=== PATIENT | female | born 1990 | race Caucasian/White ===

== ENCOUNTER 2021-01-25 19:38 | Emergency (ER) | payer MEDICAID, SELFPAY ==
--- NOTE | ~2021-01-25 | US_ITS ---
EXAMINATION: US ABDOMEN LIMITED CLINICAL INFORMATION: Mid abdominal pain for 6 days. Epigastric pain, worse after food intact. Nausea. Patient states nothing by mouth for 8 hours prior to this exam. COMPARISON: None TECHNIQUE: Real-time imaging of the right upper quadrant abdominal viscera. Color Doppler exam used. FINDINGS: PANCREAS: The head and body of the pancreas is normal. The tail is obscured by bowel gas. LIVER: Normal. The liver is normal in size. The liver contour is normal. Parenchymal echogenicity is normal. No focal hepatic lesion. There is no intrahepatic biliary duct dilatation seen. GALLBLADDER: Normal. The gallbladder is physiologically distended without evidence of stones, sludge, polyps, wall thickening or pericholecystic fluid. COMMON BILE DUCT: Normal in caliber measuring 0.3 cm in diameter. RIGHT KIDNEY: Normal. No hydronephrosis. No renal calculi or focal parenchymal lesions. The kidney measures 10.5 cm in maximum dimension. FREE FLUID: None. US/US abdomen limited IMPRESSION: Normal ultrasound right upper quadrant of abdomen.
[2021-01-25 20:13] VITALS: BP 123/61; PULSE 78; RESP 16; TEMP 37.1; O2SAT 100; BMI 21.9
[2021-01-25 20:55] LABS: MANUAL DIFF FLAG NO
[2021-01-25 20:58] LABS: Appearance Urine CLEAR; Color Urine YELLOW; Glucose Urine UA NEG (NEG); Leukocyte Esterase Urine 1+ (NEG); Nitrite Urine NEG (NEG); PH 5.5 (5.0-8.0); UACC Culture Trigger YES; Urine Blood 3+ (NEG); Urine Ketones NEG (NEG); Urine Protein NEG (NEG-TRACE)
[2021-01-25 20:58] LABS: Basophils Percent Auto 0.4 % (0-2); Eosinophils Absolute Auto 0.2 X10*3/uL (0.0-0.4); Eosinophils Percent Auto 2.6 % (0-4); Hematocrit 36.3 % (37-47); Hemoglobin 11.7 g/dl (12.0-16.0); Imm Gran Abs Auto 0.01 X10*3/uL (0.00-0.03); Imm Gran Pct Auto 0.1 % (0.0-0.4); Lymphocytes Absolute Auto 2.2 X10*3/uL (1.2-4.9); Mean Corpuscular HGB Conc 32.2 g/dl (31.0-35.0); Mean Corpuscular Hemoglobin 29.8 pg (27.0-33.0); Mean Corpuscular Volume 92.4 fL (80-98); Mean Platelet Volume 9.9 fL (9.4-12.3); Monocytes Absolute Auto 0.6 X10*3/uL (0.1-1.2); Monocytes Percent Auto 7.4 % (2-11); Neutrophils Absolute Auto 5.3 X10*3/uL (2.0-8.3); Neutrophils Percent Auto 63.5 % (45-73); Platelet Count 227 X10*3/uL (160-400); Red Blood Count 3.93 X10*6/uL (4.20-5.50); Red Cell Distribution Width 12.5 % (11.0-16.0); White Blood Count 8.4 X10*3/uL (4.8-10.8)
[2021-01-25 21:00] LABS: UPreg QC Valid YES; Urine Pregnancy NEGATIVE (NEGATIVE)
[2021-01-25 21:06] LABS: Bacteria Urine TRACE /LPF; UACC CULT YES
[2021-01-25 21:24] LABS: Alanine Aminotransferase 13 U/L (0-31); Albumin Level 4.2 g/dL (3.5-5.0); Alkaline Phosphatase 73 U/L (39-117); Anion Gap 11 (12-20); Aspartate Amino Transferase 16 U/L (5-31); Bilirubin Direct < 0.2 mg/dL (0.0-0.5); Bilirubin Total 0.4 mg/dL (0.0-1.0); Blood Urea Nitrogen 12 mg/dL (9-16); Calcium 8.6 mg/dL (8.4-10.2); Carbon Dioxide 28 mmol/L (22-29); Chloride 103 mmol/L (96-108); Creatinine Clr Calc Pharmacy 102.9; Estimated Glomerular Filt Rate > 60; Glucose Random 84 mg/dL (60-115); Lipase 57 U/L (8-78); Potassium 3.9 mmol/L (3.3-5.1); Sodium 138 mmol/L (135-145); Total Protein 7.4 g/dL (6.5-8.0)
[2021-01-25 22:19] VITALS: BP 102/58; PULSE 66; RESP 18; TEMP 36.7; O2SAT 99
--- NOTE | 2021-01-25 23:04 | ED.GENADULT ---
HPI - General Adult General Chief complaint: General Medical Stated complaint: reaction to vaccine Time Seen by Provider: 01/25/21 22:58 Source: patient Mode of arrival: ambulatory Limitations: no limitations History of Present Illness HPI narrative: Patient comes to emergency room complaining of not feeling well since she had her Lance and Lance COVID vaccine. For last 5 days, patient has been complaining of arm pain at the injection site, and complaining of epigastric pain since then. Patient states if she eats anything, it hurts worse. Related Data Previous Rx's Medication Instructions Recorded nitrofurantoin monohyd/m-cryst 100 mg PO BID #14 cap 01/26/21 [Macrobid] omeprazole 10 mg PO DAILY #7 cap 01/26/21 Allergies Allergy/AdvReac Type Severity Reaction Status Date / Time Penicillins [PENICILLINS] Allergy Mild RASH Unverified 06/29/20 17:16 azithromycin [AZITHROMYCIN] Allergy Unknown UNKNOWN Unverified 06/29/20 17:16 Review of Systems Review of Systems: Constitutional : No Weight loss, No Fever, No Chills, No Night Sweats, No Fatigue, No Malaise ENT/Mouth : No Hearing loss, No Ear Pain, No Nasal Congestion, No Sinus Pain, No Hoarseness, No sore throat, No Rhinorrhea, No Swallowing Difficulty Eyes: No Eye Pain, No Swelling, No Redness, No Foreign Body, No Discharge, No Vision Changes Cardiovascular : No Chest Pain, No SOB, No Dyspnea on Exertion, No Orthopnea, No Edema, No Palpitations Respiratory : No Cough, No Sputum, No Wheezing, No Smoke Exposure, No Dyspnea Gastrointestinal : Complaining of nausea, No Vomiting, No Diarrhea, No Constipation, complaining of epigastric abdominal Pain, No Hematochezia, No Melena Genitourinary : Today's the last day of her menstrual., No Dysuria, No Urinary Frequency, No Hematuria, No Urinary Incontinence, No Urgency, No Flank Pain, No Urinary Flow Changes, No Hesitancy Musculoskeletal : No joint pain, No Myalgias, No Joint Swelling Skin : No Skin Lesions, No rash Neuro : No Weakness, No Numbness, No Paresthesias, No Loss of Consciousness, No Dizziness, No Headache Psych : No Anxiety/Panic, No Depression, No SI/HI/AH/VH, No Social Issues, Heme/Lymph: No Bruising, No Bleeding,No Lymphadenopathy Endocrine : No Polyuria, No Polydipsia, No Temperature Intolerance [facility] Past Medical History Medical History Asthma Hypothyroid Social History Social History Advance Directives: No Advance Directives Information Provided: No Physical Exam Vital Signs: Vital Signs: Last Vital Signs Temp 98.1 F 01/25/21 22:19 Pulse 66 01/25/21 22:19 Resp 18 01/25/21 22:19 BP 102/58 L 01/25/21 22:19 Pulse Ox 99 01/25/21 22:19 Body Mass Index 21.9 Appearance: Alert. Oriented X3. No acute distress. Well-appearing Eyes: Pupils equal, round and reactive to light. ENT: Pharynx normal. Neck: Normal inspection. Neck supple. No lymph nodes noted. No crepitus CVS: Normal heart rate and rhythm. Pulses normal. Normal S1 and S2 Respiratory: No respiratory distress. Breath sounds normal. No Wheezing. No rales Abdomen: Soft and nontender to deep palpation in all quadrants including epigastric pain, negative Dc's sign, No rigidity. No distention. good BS x4 Skin: Skin warm and dry. Normal skin color. Normal skin turgor. Extremities: No lower extremity edema. No lower extremity edema. No Lacerations. No Rash Neuro: Oriented X 3. No motor deficit. No sensory deficit. Moving all extermities. No slurred speech. Course Course Course Narrative: Patient feeling better after GI cocktail, ultrasound discussed with the patient, no acute findings, patient likely has gastritis. Patient has a very mild UTI, given that she has abdominal pain, will go ahead and treat. Medical Decision Making Lab Data Result diagrams: 01/25/21 20:45 01/25/21 20:45 Labs: Lab Results 01/25/21 01/25/21 01/25/21 Range/Units 20:45 20:45 20:49 WBC 8.4 (4.8-10.8) X10*3/uL RBC 3.93 L (4.20-5.50) X10*6/uL Hgb 11.7 L (12.0-16.0) g/dl Hct 36.3 L (37-47) % MCV 92.4 (80-98) fL MCH 29.8 (27.0-33.0) pg MCHC 32.2 (31.0-35.0) g/dl RDW 12.5 (11.0-16.0) % Plt Count 227 (160-400) X10*3/uL MPV 9.9 (9.4-12.3) fL Immature Gran % (Auto) 0.1 (0.0-0.4) % Neut % (Auto) 63.5 (45-73) % Lymph % (Auto) 26.0 (20-40) % [place] % (Auto) 7.4 (2-11) % Eos % (Auto) 2.6 (0-4) % Baso % (Auto) 0.4 (0-2) % Lymph # (Auto) 2.2 (1.2-4.9) X10*3/uL [place] # (Auto) 0.6 (0.1-1.2) X10*3/uL Eos # (Auto) 0.2 (0.0-0.4) X10*3/uL Baso # (Auto) 0.0 (0.0-0.2) X10*3/uL Abs Immat Gran (auto) 0.01 (0.00-0.03) X10*3/uL Absolute Neuts (auto) 5.3 (2.0-8.3) X10*3/uL Absolute Nucleated RBC 0.000 (0.0-0.012) X10*3/uL Nucleated RBC % (auto) 0.0 (0.0-0.2) /100WBC Sodium 138 (135-145) mmol/L Potassium 3.9 (3.3-5.1) mmol/L Chloride 103 (96-108) mmol/L Carbon Dioxide 28 (22-29) mmol/L Anion Gap 11 L (12-20) BUN 12 (9-16) mg/dL Creatinine 0.77 (0.5-1.4) mg/dL Estim Creat Clear Calc 102.9 Estimated GFR > 60 Random Glucose 84 (60-115) mg/dL Calcium 8.6 (8.4-10.2) mg/dL Total Bilirubin 0.4 (0.0-1.0) mg/dL Direct Bilirubin < 0.2 (0.0-0.5) mg/dL AST 16 (5-31) U/L ALT 13 (0-31) U/L Alkaline Phosphatase 73 (39-117) U/L Total Protein 7.4 (6.5-8.0) g/dL Albumin 4.2 (3.5-5.0) g/dL Lipase 57 (8-78) U/L Urine Color YELLOW Urine Appearance CLEAR Urine pH 5.5 (5.0-8.0) Ur Specific [place] 1.020 (1.005-1.025) Urine Protein NEG (NEG-TRACE) MG/DL Urine Glucose (UA) NEG (NEG) MG/DL Urine Ketones NEG (NEG) MG/DL Urine Blood 3+ H (NEG) Urine Nitrite NEG (NEG) Ur Leukocyte Esterase 1+ H (NEG) Urine RBC 1-4 (0) /HPF Urine WBC 1-4 (0-4) /HPF Ur Squamous Epith Cells NONE /LPF Urine Bacteria TRACE /LPF Urine Test (NEGATIVE) 01/25/21 Range/Units 20:49 WBC (4.8-10.8) X10*3/uL RBC (4.20-5.50) X10*6/uL Hgb (12.0-16.0) g/dl Hct (37-47) % MCV (80-98) fL MCH (27.0-33.0) pg MCHC (31.0-35.0) g/dl RDW (11.0-16.0) % Plt Count (160-400) X10*3/uL MPV (9.4-12.3) fL Immature Gran % (Auto) (0.0-0.4) % Neut % (Auto) (45-73) % Lymph % (Auto) (20-40) % [place] % (Auto) (2-11) % Eos % (Auto) (0-4) % Baso % (Auto) (0-2) % Lymph # (Auto) (1.2-4.9) X10*3/uL [place] # (Auto) (0.1-1.2) X10*3/uL Eos # (Auto) (0.0-0.4) X10*3/uL Baso # (Auto) (0.0-0.2) X10*3/uL Abs Immat Gran (auto) (0.00-0.03) X10*3/uL Absolute Neuts (auto) (2.0-8.3) X10*3/uL Absolute Nucleated RBC (0.0-0.012) X10*3/uL Nucleated RBC % (auto) (0.0-0.2) /100WBC Sodium (135-145) mmol/L Potassium (3.3-5.1) mmol/L Chloride (96-108) mmol/L Carbon Dioxide (22-29) mmol/L Anion Gap (12-20) BUN (9-16) mg/dL Creatinine (0.5-1.4) mg/dL Estim Creat Clear Calc Estimated GFR Random Glucose (60-115) mg/dL Calcium (8.4-10.2) mg/dL Total Bilirubin (0.0-1.0) mg/dL Direct Bilirubin (0.0-0.5) mg/dL AST (5-31) U/L ALT (0-31) U/L Alkaline Phosphatase (39-117) U/L Total Protein (6.5-8.0) g/dL Albumin (3.5-5.0) g/dL Lipase (8-78) U/L Urine Color Urine Appearance Urine pH (5.0-8.0) Ur Specific [place] (1.005-1.025) Urine Protein (NEG-TRACE) MG/DL Urine Glucose (UA) (NEG) MG/DL Urine Ketones (NEG) MG/DL Urine Blood (NEG) Urine Nitrite (NEG) Ur Leukocyte Esterase (NEG) Urine RBC (0) /HPF Urine WBC (0-4) /HPF Ur Squamous Epith Cells /LPF Urine Bacteria /LPF Urine Test NEGATIVE (NEGATIVE) Imaging Data US - abdomen: Radiologist's impression: INDINGS: PANCREAS: The head and body of the pancreas is normal. The tail is obscured by bowel gas. LIVER: Normal. The liver is normal in size. The liver contour is normal. Parenchymal echogenicity is normal. No focal hepatic lesion. There is no intrahepatic biliary duct dilatation seen. GALLBLADDER: Normal. The gallbladder is physiologically distended without evidence of stones, sludge, polyps, wall thickening or pericholecystic fluid. COMMON BILE DUCT: Normal in caliber measuring 0.3 cm in diameter. RIGHT KIDNEY: Normal. No hydronephrosis. No renal calculi or focal parenchymal lesions. The kidney measures 10.5 cm in maximum dimension. FREE FLUID: None. US/US abdomen limited IMPRESSION: Normal ultrasound right upper quadrant of abdomen. Discharge Plan Discharge Clinical Impression: Gastritis Qualifiers: Gastritis type: unspecified gastritis Chronicity: unspecified Gastritis bleeding: without bleeding Qualified Code(s): K29.70 - Gastritis, unspecified, without bleeding UTI (urinary tract infection) Qualifiers: Urinary tract infection type: site unspecified Hematuria presence: without hematuria Qualified Code(s): N39.0 - Urinary tract infection, site not specified Patient Disposition: Home, Self-Care Instructions: Gastritis (ED) Additional Instructions: Please follow-up with your primary care physician tomorrow. If you have any worsening or new symptoms, please return to the emergency room or call 911 Prescriptions: New omeprazole 10 mg capsule,delayed release(DR/EC) 10 mg PO DAILY Qty: 7 RF: 0 nitrofurantoin monohyd/m-cryst [Macrobid] 100 mg capsule 100 mg PO BID Qty: 14 RF: 0
[2021-01-26] MEDS: Lidocaine HCl Viscous 2 % 15 ML SOLUTION MUCOUS MEM (00:25)
[2021-01-26] MEDS: Magnesium Hydrox/Alum Hydrox 30 ML ORAL.SUSP PO (00:25)
== END 2021-01-26 00:43 | disposition home or self-care (01) ==
PROVIDERS: Emergency Provider Emergency Medicine; PCP Nurse Practitioner Family
DX: N39.0 Urinary tract infection, site not specified (principal); K29.70 Gastritis, unspecified, without bleeding; R10.13 Epigastric pain
CPT/HCPCS: 36415; 76705; 80053; 80076; 81001; 81025; 82248; 83690; 85025; 87086; 99283; 99284

== ENCOUNTER 2022-01-21 15:06 | Emergency (ER) | payer MEDICAID, SELFPAY ==
--- NOTE | ~2022-01-21 | XR_ITS ---
EXAMINATION: LUMBAR SPINE. SACRUM AND COCCYX. CLINICAL INFORMATION: Fall. Pain. COMPARISON: None TECHNIQUE: Lumbar spine 3 views. Sacrum and coccyx 3 views. FINDINGS: Lumbar spine: There is normal lumbar lordosis. The vertebral heights, alignment and disc heights are normal. There is no visible acute fracture, dislocation or subluxation. No lytic process seen. The soft tissues are normal. Sacrum and coccyx: The SI joints are symmetrical and normal. There is acute kyphotic deformity involving the sacrococcygeal junction but no visible fracture or bony abnormality. Incidental finding of an IUD in the pelvis. XR/XR lumbar spine 2-3V IMPRESSION: Unremarkable lumbar spine exam. No visible fracture involving the lumbosacral spine. There is kyphotic deformity of sacrococcygeal junction likely old injury. No soft tissue swelling seen.
--- NOTE | ~2022-01-21 | XR_ITS ---
EXAMINATION: LUMBAR SPINE. SACRUM AND COCCYX. CLINICAL INFORMATION: Fall. Pain. COMPARISON: None TECHNIQUE: Lumbar spine 3 views. Sacrum and coccyx 3 views. FINDINGS: Lumbar spine: There is normal lumbar lordosis. The vertebral heights, alignment and disc heights are normal. There is no visible acute fracture, dislocation or subluxation. No lytic process seen. The soft tissues are normal. Sacrum and coccyx: The SI joints are symmetrical and normal. There is acute kyphotic deformity involving the sacrococcygeal junction but no visible fracture or bony abnormality. Incidental finding of an IUD in the pelvis. XR/XR sacrum coccyx min 2V IMPRESSION: Unremarkable lumbar spine exam. No visible fracture involving the lumbosacral spine. There is kyphotic deformity of sacrococcygeal junction likely old injury. No soft tissue swelling seen.
[2022-01-21 15:39] VITALS: BP 97/64; PULSE 110; RESP 18; TEMP 36.4; O2SAT 100; BMI 25.6
--- NOTE | 2022-01-21 16:36 | ED.GENADULT ---
HPI - General Adult General Chief complaint: Headache Stated complaint: back and neck pain Time Seen by Provider: 01/21/22 16:22 Source: patient Mode of arrival: ambulatory Limitations: no limitations History of Present Illness HPI narrative: Patient is a 31 year old female presenting to the emergency department today with low back pain. Patient states that she down a flight of stairs a few weeks ago and since then she has had low back pain that radiates up her spine. Patient denies hitting hit her head with the incident. Patient denies any loss of consciousness with the incident. Patient denies any dizziness, lightheadedness, abdominal pain, nausea, vomiting, fever, chills, blurry vision, double vision, loss of vision, chest pain, difficulty breathing, shortness of breath, night sweats, pain with urination, increased urinary frequency, increased urinary urgency, blood in her urine or stool, syncope or a near syncopal episode, bowel incontinence, bladder incontinence, bowel retention, bladder retention, or any other complaints at this time. Onset (ago): week(s) Location: back Severity: mild Severity scale (1-10): 3 Quality: dull Pain Consistency: intermittent Relieving factors: none Exacerbating factors: none Associated symptoms: denies other symptoms Treatments prior to arrival: none Related Data Previous Rx's Medication Instructions Recorded nitrofurantoin 100 mg PO BID #14 cap 01/26/21 monohydrate/macrocrystals 100 mg capsule (Macrobid) omeprazole 10 mg capsule,delayed 10 mg PO DAILY #7 cap 01/26/21 release cyclobenzaprine 10 mg tablet 10 mg PO TID PRN 7 Days #21 tab 01/21/22 Allergies Allergy/AdvReac Type Severity Reaction Status Date / Time Penicillins [PENICILLINS] Allergy Mild RASH Unverified 06/29/20 17:16 azithromycin [AZITHROMYCIN] Allergy Unknown UNKNOWN Unverified 06/29/20 17:16 Review of Systems Constitutional: Constitutional: Reports no additional constitutional complaints, Denies chills, Denies fever(s) and Denies night sweats Eyes: Eyes: Reports no additional eye complaints, Denies blurry vision, Denies change in vision, Denies diplopia, Denies eye discharge, Denies loss of vision and Denies eye pain ENT: Denies dizziness Cardiovascular: Cardiovascular: Reports no additional cardiovascular complaints, Denies chest pain, Denies lightheadedness, Denies Loss of Consciousness and Denies dyspnea Respiratory: Respiratory: Reports no additional respiratory complaints and Denies dyspnea Gastrointestinal: Gastrointestinal: Reports no additional gastrointestinal complaints, Denies abdominal pain, Denies melena, Denies hematochezia, Denies change in bowel habits and Denies change in stool character Genitourinary: Genitourinary: Denies hematuria, Denies urinary frequency, Denies dysuria, Denies urinary incontinence, Denies urinary hesitancy and Denies urinary urgency Musculoskeletal: Musculoskeletal: Reports no additional musculoskeletal complaints, Reports back pain, Denies numbness and Denies tingling Neurologic: Denies dizziness, Denies loss of vision, Denies numbness and Denies tingling Psychiatric: Psychiatric: Reports no additional psychiatric complaints Endocrine: Endocrine: Reports no additional endocrine complaints Hematologic/Lymphatic: Hematologic/Lymphatic: Reports no additional hematologic/lymphatic complaints Allergic/Immunologic: Allergic/Immunologic: Reports no additional allergic/immunologic complaints PMFSH Past Medical History Attestation statement: The following information was validated with the patient. Source: old records reviewed Medical History Asthma Hypothyroid Social History Social History Advance Directives: No Advance Directives Information Provided: No Patient : No Physical Exam ED Vital Signs: Vital Signs - 24 hr 01/21/22 15:39 Temperature 97.5 F Pulse Rate 110 H Respiratory Rate 18 Blood Pressure 97/64 Pulse Oximetry 100 BMI result Body Mass Index 25.6 Const General: cooperative, no acute distress, alert and awake Nutritional Appearance: well nourished Orientation/consciousness: patient oriented x3 Limitations: no limitations [facility] Head: Yes normal to inspection and Yes atraumatic Ears: hearing grossly normal bilaterally and external ears normal General nose exam: Normal external nose present, no nasal discharge noted and no epistaxis Face and sinus: Yes normal facial exam, No abrasion and No laceration Mouth: Normal oral and palatal mucosa present, no drooling and no muffled voice Eyes General: appearance normal, both eyes and all related structures Periorbital: periorbital findings normal Eyelids: Yes eyelids normal Conjunctivae: conjunctivae normal Pupils: Equal, round and reactive pupils present EOM: EOMs intact bilaterally Neck Neck: Yes normal visual inspection, Yes full ROM and Yes no lymphadenopathy Chest Chest palpation & inspection: normal inspection of the chest Resp Effort & Inspection: normal respiratory effort and able to speak in complete sentences Auscultation: clear to auscultation bilaterally Cardio Rate: regular rate Rhythm: regular rhythm GI Inspection: Yes normal to inspection General: Yes no CVA tenderness Back/Spine/Pelvis Back: no CVA tenderness Cervical Spine: normal cervical lordosis and cervical ROM normal Thoracic/Lumbar Spine: thoracic and lumbar spine normal to inspection and thoraco-lumbar ROM normal Pelvis: no pain with anterior-posterior compression and no pain with lateral compression Neuro General: patient oriented x3 and moves all extremities Cranial nerves: Yes Equal, round and reactive pupils present Cognition (Neuro): normal cognition Motor exam (neuro): 5/5 motor strength present throughout Sensory Exam: Normal double simultaneous stimulation for sensation Coordination: [id number] test normal Extrem General: Yes normal to inspection, Yes full ROM and Yes capillary refill normal Psych Appearance: grossly normal Mental Status: mental status grossly normal Affect: normal affect Attitude: cooperative Thought process: Normal thought process present Thought content: Normal thought content present Insight: Good insight present (Psych) Medical Decision Making MDM Narrative Medical decision making narrative: Patient is a 31 year old female presenting to the emergency department today with low back pain. Patient's physical exam was unremarkable. Patient's lumbar and coccyx x-rays showed no acute process. I explained my physical exam findings as well as all test results to the patient. I answered all questions asked by the patient. Patient received PO Flexeril and IM Toradol which she stated helped her symptoms significantly. I stressed the importance of the patient taking her medication as prescribed. I stressed the importance of the patient following up with her primary care provider and an orthopedic provider. I stressed the importance of the patient returning to the emergency department immediately if her symptoms were to worsen or if she were to develop any dizziness, shortness of breath, difficulty breathing, chest pain, blurry vision, loss of vision, nausea, vomiting, abdominal pain, fever, chills, back pain, or any other complaints. Patient verbalized agreement and understanding with this treatment plan and discharge. Differential Diagnosis Differential Diagnosis: low back pain Medical Records Medical records reviewed: Yes I reviewed the patient's medical records. Imaging Data Lumbar spine, coccyx, and scarum x-ray: Attestation: I personally reviewed and interpreted this imaging study as follows: My impression: No acute fracture. Radiologist's impression: EXAMINATION: LUMBAR SPINE. SACRUM AND COCCYX. CLINICAL INFORMATION: Fall. Pain.? COMPARISON: None? TECHNIQUE: Lumbar spine 3 views. Sacrum and coccyx 3 views.? FINDINGS: Lumbar spine: There is normal lumbar lordosis. The vertebral heights, alignment and disc heights are normal. There is no visible acute fracture, dislocation or subluxation. No lytic process seen. The soft tissues are normal. Sacrum and coccyx: The SI joints are symmetrical and normal. There is acute kyphotic deformity involving the sacrococcygeal junction but no visible fracture or bony abnormality. Incidental finding of an IUD in the pelvis. XR/XR sacrum coccyx min 2V IMPRESSION: Unremarkable lumbar spine exam. ? No visible fracture involving the lumbosacral spine. There is kyphotic deformity of sacrococcygeal junction likely old injury. No soft tissue swelling seen.? Dictated By: Camron Macdonald MD Signed By: Electronically signed by Camron Macdonald MD 01/21/22 2402 Discharge Plan Discharge Clinical Impression: Low back pain Patient Disposition: Home, Self-Care Instructions: Acute Low Back Pain (ED) Additional Instructions: Call to schedule a follow up appointment with an Orthopedic provider. Follow up with your primary care provider. Return to the emergency department immediately if your symptoms worsen or if you develop any dizziness, shortness of breath, difficulty breathing, chest pain, blurry vision, loss of vision, nausea, vomiting, abdominal pain, fever, chills, back pain, or any other complaints. Prescriptions: New cyclobenzaprine 10 mg tablet 10 mg PO TID PRN (Reason: muscle spasm) 7 Days Qty: 21 0RF No Action omeprazole 10 mg capsule,delayed release(DR/EC) 10 mg PO DAILY Qty: 7 0RF nitrofurantoin monohyd/m-cryst [Macrobid] 100 mg capsule 100 mg PO BID Qty: 14 0RF Rx Instructions: must administer with a meal/food [place]: [facility] [place] [facility] [place] Group] Bia Gomez NP [Primary Care Provider] - Print Language: [place]
[2022-01-21] MEDS: Cyclobenzaprine HCl 10 MG TABLET PO (16:50)
[2022-01-21] MEDS: Ketorolac Tromethamine 30 MG/ML VIAL IM (16:51)
== END 2022-01-21 18:58 | disposition home or self-care (01) ==
PROVIDERS: Emergency Provider Internal Medicine; PCP Nurse Practitioner Family
DX: M54.50 Low back pain, unspecified (principal); M54.2 Cervicalgia
CPT/HCPCS: 72100; 72220; 96372; 99283; 99284; J1885